=== PATIENT | female | born 1985 | race Caucasian/White ===

== ENCOUNTER 2016-05-30 12:02 | Outpatient (CLI) | payer MEDICAID, OTHER ==
[2016-05-30 13:46] VITALS: BP 110/67
--- NOTE | 2016-05-30 13:56 | Ultrasound Report ---
BIOPHYSICAL PROFILE: Technique: Transabdominal ultrasound with Doppler interrogation. 2 - breathing movements 2 - movements 2 - posture and tone 2 - Qualitative amniotic fluid volume 8 - TOTAL SCORE OF POSSIBLE 8 Heart Rate (bpm) 135
--- NOTE | 2016-05-30 13:57 | Ultrasound Report ---
OB LIMITED Technique: Transabdominal ultrasound with Doppler interrogation. Gestation: Single Position: Cephalic Amniotic Fluid: Normal EULOGIO = 15.3 cm Heart Rate: 135 bpm.
== END 2016-05-30 15:00 | disposition home or self-care (01) ==
LOC: TRG 12:02
PROVIDERS: ATTEND Specialist
DX: O77.9 Labor and delivery complicated by fetal stress, unspecified (principal); O47.9 False labor, unspecified; Z3A.00 Weeks of gestation of pregnancy not specified
CPT/HCPCS: 59025; 76815; 76819

== ENCOUNTER 2020-07-04 11:48 | Observation (INO) | payer OTHER ==
--- NOTE | 2020-07-04 12:36 | Emergency Department Report ---
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 she states she has only had to use one pad today. she states she is currently , LNMP 06/22/2020. she states she went to [facility] and they are concerned for left adnexal ectopic and she was sent to the ED. she denies any fever, n/v/d, dysuria, abnormal vaginal discharge. pmhx ectopic 5 years ago. no allergies to meds. /P:1/A:0 - Related Data Home Medications Medication Instructions Recorded Confirmed Last Taken Pnv No.95/Ferrous Fum/Folic AC 1 each PO DAILY 05/30/16 05/30/16 05/29/16 21:00 [Prenavite Tablet] 1 Previous Rx's Medication Instructions Recorded Last Taken Type Ferrous Sulfate [Feosol 325 MG tab] 325 mg PO BID #60 tablet 06/03/16 Unknown Rx Ibuprofen [Motrin 800 MG tab] 800 mg PO Q8HR PRN #30 tablet 06/03/16 Unknown Rx oxyCODONE /ACETAMINOPHEN [Percocet 1 tab PO Q6HR PRN #30 tablet 06/03/16 Unknown Rx 5/325] oxyCODONE /ACETAMINOPHEN [Percocet 1 tab PO Q6H PRN #30 tablet 07/04/20 Unknown Rx 5/325 mg] Allergies Allergy/AdvReac Type Severity Reaction Status Date / Time No Known Allergies Allergy Verified 05/30/16 12:40 ED Review of Systems ROS: Stated complaint: SENT BY DR OFFICE /EVALUATE Other details as noted in HPI Comment: All other systems reviewed and negative ED Past Medical Hx - Past Medical History Previous Medical History?: No Hx Hypertension: No Hx Diabetes: No Hx Deep Vein Thrombosis: No Hx Renal Disease: No Hx Sickle Cell Disease: No Hx Seizures: No Hx Asthma: No Hx HIV: No - Surgical History Past Surgical History?: No - Social History Smoking Status: Never Smoker - Medications Home Medications: Home Medications Medication Instructions Recorded Confirmed Last Taken Type Pnv No.95/Ferrous Fum/Folic AC 1 each PO DAILY 05/30/16 05/30/16 05/29/16 21:00 History [Prenavite Tablet] 1 Ferrous Sulfate [Feosol 325 MG tab] 325 mg PO BID #60 tablet 06/03/16 Unknown Rx Ibuprofen [Motrin 800 MG tab] 800 mg PO Q8HR PRN #30 tablet 06/03/16 Unknown Rx oxyCODONE /ACETAMINOPHEN [Percocet 1 tab PO Q6HR PRN #30 tablet 06/03/16 Unknown Rx 5/325] oxyCODONE /ACETAMINOPHEN [Percocet 1 tab PO Q6H PRN #30 tablet 07/04/20 Unknown Rx 5/325 mg] ED Physical Exam - General Limitations: No Limitations General appearance: alert, in no apparent distress - Head Head exam: Present: atraumatic, normocephalic - Eye Eye exam: Present: normal appearance - ENT ENT exam: Present: mucous membranes moist - Respiratory Respiratory exam: Present: normal lung sounds bilaterally. Absent: respiratory distress, wheezes, rales, rhonchi, stridor, chest wall tenderness, accessory muscle use, decreased breath sounds, prolonged expiratory - Cardiovascular Cardiovascular Exam: Present: regular rate, normal rhythm, normal heart sounds. Absent: systolic murmur, diastolic murmur, rubs, gallop - GI/Abdominal GI/Abdominal exam: Present: soft, tenderness (mild suprapubic), normal bowel sounds. Absent: distended, guarding, rebound, rigid - Neurological Exam Neurological exam: Present: alert, oriented X3 - Psychiatric Psychiatric exam: Present: normal affect, normal mood - Skin Skin exam: Present: warm, dry, intact ED Course Vital Signs 07/04/20 07/04/20 07/04/20 12:18 19:49 19:55 Temperature 97.4 F L 97.3 F L Pulse Rate 57 L 70 67 Respiratory 18 15 14 Rate Blood Pressure 111/49 104/57 108/56 O2 Sat by Pulse 100 100 100 Oximetry 07/04/20 07/04/20 07/04/20 20:00 20:15 20:30 Temperature 97.7 F Pulse Rate 70 76 72 Respiratory 14 14 14 Rate Blood Pressure 113/54 110/58 110/47 O2 Sat by Pulse 100 100 100 Oximetry - Consultations Consultation #1: 07/04/20 14:[address] Maik Carcamo, bracer states the clinic pt was sent from is affiliated [facility] and advised to call [facility] roadmaster bracer 07/04/20 15:[address] romero, bracer, regarding pt history and results, will evaluate pt in ED ED Medical Decision Making - Lab Data Result diagrams: 07/04/20 12:33 07/04/20 12:33 - Radiology Data Radiology results: report reviewed Ordering Physician: JEAN MILLAN Date of Service: 07/04/20 Procedure(s): US OB <= 14 weeks fetus Accession Number(s): [id number] cc: JEAN MILLAN ULTRASOUND OBSTETRIC INDICATION: First trimester with pelvic pain and bleeding. TECHNIQUE: Transabdominal. COMPARISON: None available. FINDINGS: A live left adnexal ectopic is noted with a crown-rump length of 0.4 cm, consistent with an age of 6 weeks, 1 day. The heart rate measures 116 bpm. No other significant left adnexal abnormality. A right ovarian cyst versus dominant follicle without suspicious features measures up to 1.5 cm. No other significant abnormality of the right ovary/adnexa. No intrauterine is identified. The uterus is otherwise unremarkable. No free fluid is seen. IMPRESSION: Live left adnexal ectopic as above. 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 she states she has only had to use one pad today. she states she is currently , LNMP 06/22/2020. she states she went to [facility] and they are concerned for left adnexal ectopic and she was sent to the ED. she denies any fever, n/v/d, dysuria, abnormal vaginal discharge. pmhx ectopic 5 years ago. no allergies to meds. /P:1/ A:0. vitals are normal. On exam patient has mild suprapubic abdominal tenderness palpation, no guarding, no rebound, no rigidity, [place] [address]. Patient is Rh positive. Otherwise labs are stable. OB ultrasound:Live left adnexal ectopic . spoke to Dr. romero, bracer, regarding pt history and results, will evaluate pt in ED. Dr. Romero, SHELL GRADER discussed with patient and they have decided to take patient to the OR. Critical care attestation.: If time is entered above; I have spent that time in minutes in the direct care of this critically ill patient, excluding procedure time. ED Disposition Clinical Impression: Vaginal bleeding Ectopic Qualifiers: Location of ectopic : ovarian Intrauterine status: without intrauterine Laterality: left Qualified Code(s): O00.202 - Left ovarian without intrauterine Abdominal pain Qualifiers: Abdominal location: lower abdomen, unspecified Qualified Code(s): R10.30 - Lower abdominal pain, unspecified Disposition: DC-09 OP ADMIT IP TO THIS HOSP Is pt being admited?: Yes Does the pt Need Aspirin: No Condition: Stable
[2020-07-04 12:43] LABS: Basophils % (Auto) 0.3 % (0.0-1.8); Eosinophils # (Auto) 0.1 K/mm3 (0.0-0.4); Eosinophils % (Auto) 0.9 % (0.0-4.3); Hemoglobin 12.1 gm/dl (10.1-14.3); Lymphocytes # (Auto) 1.2 K/mm3 (1.2-5.4); Lymphocytes % (Auto) 18.5 % (13.4-35.0); Mean Corpuscular HGB Conc 33 % (30-34); Mean Corpuscular Volume 88 fl (79-97); Monocytes # (Auto) 0.5 K/mm3 (0.0-0.8); Monocytes % (Auto) 7.5 % (0.0-7.3); Platelet Count 181 K/mm3 (140-440); Red Blood Count 4.23 M/mm3 (3.65-5.03); Red Cell Distribution Width 13.9 % (13.2-15.2)
[2020-07-04 13:08] LABS: Alanine Aminotransferase 18 units/L (7-56); Albumin 4.4 g/dL (3.9-5); Blood Urea Nitrogen 8 mg/dL (7-17); Calcium 9.1 mg/dL (8.4-10.2); Hemolysis Index 3
[2020-07-04 13:11] LABS: BUN/Creatinine Ratio 16
--- NOTE | 2020-07-04 13:28 | Ultrasound Report ---
ULTRASOUND OBSTETRIC INDICATION: First trimester with pelvic pain and bleeding. TECHNIQUE: Transabdominal. COMPARISON: None available. FINDINGS: A live left adnexal ectopic is noted with a crown-rump length of 0.4 cm, consistent with an age of 6 weeks, 1 day. The heart rate measures 116 bpm. No other significant left adnexal abnormalit y. A right ovarian cyst versus dominant follicle without suspicious features measures up to 1.5 cm. No o ther significant abnormality of the right ovary/adnexa. No intrauterine is identified. The uterus is otherwise unremarkable. No free fluid is seen. IMPRESSION: Live left adnexal ectopic as above. Signer Name: Bj Lopez MD Signed: 07/04/2020 1:23 PM Workstation Name: [id number]
[2020-07-04] MEDS ORDERED: LACTATED RINGERS 1,000 ML IV SCH ×2 (16:15→19:45)
--- NOTE | 2020-07-04 16:18 | History and Physical Report ---
History of Present Illness Date of examination: 07/04/20 Chief complaint: Left ectopic , hx right salpingectomy from previous ectopic . History of present illness: 35 yo A1 c/b hx prior c/s x 1, hx right ectopic with 10/2014 with reported R salpingectomy in 2014 presenting from [facility] clinic if concern for ectopic , found to have left ectopic with cardiac motion. Patient reports having vaginal bleeding that she though was her normal menses Jun 22 and has had intermittent lower abdominal pain since Friday07/01/20. Dx with abnormal today. Patient with hx of OCPs prior to first and hx of IUD after the of her only child in 2016 at [facility]. Patient otherwise medically uncomplicated and well. Denies hx of STDs or intraabdominal infections. Past History Past Medical History: no pertinent history Past Surgical History: section (x1), other (R salpingectomy (R ectopic 10/2014)) Family/Genetic History: diabetes (mother) Social history: no significant social history - Obstetrical History : 3 Para: 1 Hx # Term Pregnancies: 1 Induced : 1 Number of Living Children: 1 Medications and Allergies Allergies Allergy/AdvReac Type Severity Reaction Status Date / Time No Known Allergies Allergy Verified 05/30/16 12:40 Home Medications Medication Instructions Recorded Confirmed Last Taken Type Pnv No.95/Ferrous Fum/Folic AC 1 each PO DAILY 05/30/16 05/30/16 05/29/16 21:00 History [Prenavite Tablet] 1 Ferrous Sulfate [Feosol 325 MG tab] 325 mg PO BID #60 tablet 06/03/16 Unknown Rx Ibuprofen [Motrin 800 MG tab] 800 mg PO Q8HR PRN #30 tablet 06/03/16 Unknown Rx oxyCODONE /ACETAMINOPHEN [Percocet 1 tab PO Q6HR PRN #30 tablet 06/03/16 Unknown Rx 5/325] Review of Systems All systems: negative (expect HPI) - Vital Signs Vital signs: Vital Signs Temp Pulse Resp BP Pulse Ox 97.4 F L 57 L 18 111/49 100 07/04/20 12:18 07/04/20 12:18 07/04/20 12:18 07/04/20 12:18 07/04/20 12:18 Temp Pulse Resp BP Pulse Ox 97.4 F L 57 L 18 111/49 100 07/04/20 12:18 07/04/20 12:18 07/04/20 12:18 07/04/20 12:18 07/04/20 12:18 - Physical Exam Cardiovascular: Regular rate Lungs: Positive: Clear to auscultation, Normal air movement Abdomen: Positive: normal appearance, normal bowel sounds Results Result Diagrams: 07/04/20 12:33 07/04/20 12:33 Abnormal lab results 07/04/20 07/04/20 07/04/20 Range/Units 12:33 12:33 12:33 Wagoner % (Auto) 7.5 H (0.0-7.3) % Seg Neutrophils % 72.8 H (40.0-70.0) % Sodium 135 L (137-145) mmol/L Creatinine 0.5 L (0.6-1.2) mg/dL HCG, Quant 94602 H (0-4) mIU/mL All other labs normal. Ultrasound: report reviewed (Left sided ectopic , + CM, CRL 0.4 cm c/w 6w1d, Right ovarian cyst vs dominant follicle 1.5 cm, no IUP visualized, uterus otherwise benign, no free fluid) Assessment and Plan - Patient Problems (1) Ectopic Current Visit: Yes Status: Acute Qualifiers: Location of ectopic : ovarian Intrauterine status: without intrauterine Laterality: left Qualified Code(s): O00.202 - Left ovarian without intrauterine Plan to address problem: New left sided ectopic with cardiac motion with hx of previous right salpingectomy 2/2 right ectopic in 2014 --Discussed at length the possibility of losing 2nd fallopian tube given size of current left sided ectopic . Completed entire assessment with [employer]bay reseller. Offered to speak with patient's family members regarding this infomation and patient declines. --To OR for left sided salpingostomy, possible left sided salpingectomy, laparoscopic vs open, any other indicated procedures --Consented in the chart --Extensive discussion completed with particular regards of how this related to future possibilities, added the following to the consent under risks "risk of infertility naturally without fertility procedures secondary to loss of 2nd fallopian tube"
[2020-07-04] MEDS ORDERED: HYDROmorphone 1 MG/1 ML INJ ONE (16:26)
[2020-07-04] MEDS ORDERED: MIDAZOLAM 2 MG/2 ML INJ ONE (16:26)
[2020-07-04] MEDS ORDERED: propofoL 200 MG/20 ML VIAL IV ONE (16:27)
[2020-07-04] MEDS ORDERED: ROCURONIUM 50 MG/5 ML INJ IV ONE (16:29)
[2020-07-04] MEDS ORDERED: LIDOCAINE MPF (2%) 20 MG/1 ML VIAL 5 ML ONE (16:31)
--- NOTE | 2020-07-04 16:36 | Anesthesia Consultation ---
Anesthesia Consult and Med Hx Date of service: 07/04/20 - Airway Anesthetic Teeth Evaluation: Good ROM Head & Neck: Adequate Mental/Hyoid Distance: Adequate Mallampati Class: Class II Intubation Access Assessment: Good - Pulmonary Exam CTA: Yes - Cardiac Exam Cardiac Exam: RRR - Pre-Operative Health Status ASA Pre-Surgery Classification: ASA1, Emergency Proposed Anesthetic Plan: General - Pulmonary Hx Asthma: No Hx Pneumonia: No - Cardiovascular System Hx Hypertension: No - Central Nervous System Hx Seizures: No Hx Psychiatric Problems: No - Endocrine Hx Renal Disease: No Hx End Stage Renal Disease: No Hx Hypothyroidism: No Hx Hyperthyroidism: No - Hematic Hx Anemia: No Hx Sickle Cell Disease: No - Other Systems Hx Alcohol Use: No
--- NOTE | 2020-07-04 16:37 | Anesthesia Day of Surgery ---
Anesthesia Day of Surgery - Day of Surgery Patient Examined: Yes Patient H&P Reviewed: Yes Patient is NPO: Yes
[2020-07-04] MEDS ORDERED: BUPIVACAINE/PF (0.5%) 5 MG/1 ML 30 ML VIAL INFILTRATI ONE ×2 (16:44→18:40)
[2020-07-04] MEDS ORDERED: ONDANSETRON 4 MG/2 ML INJ IV PRN ×2 (16:50→19:39)
[2020-07-04] MEDS ORDERED: ceFAZolin/Water 2 GM/20 ML 2 GM/20 ML SYRINGE IV NR (17:00)
[2020-07-04] MEDS ORDERED: ePHEDrine SULFATE 50 MG/1 ML INJ ONE (17:44)
[2020-07-04] MEDS ORDERED: SODIUM CHLORIDE 0.9% IRRIG SOLN 2000 ML IR ONE (18:39)
[2020-07-04] MEDS ORDERED: NEOSTIGMINE 10MG/10 ML INJ MDV ONE (19:22)
[2020-07-04] MEDS ORDERED: KETOROLAC 30 MG/1 ML INJ ONE (19:23)
[2020-07-04] MEDS ORDERED: GLYCOPYRROLATE 0.4 MG/2 ML INJ ONE (19:23)
[2020-07-04] MEDS ORDERED: dexAMETHasone 20 MG/5 ML VIAL ONE (19:30)
[2020-07-04] MEDS ORDERED: ONDANSETRON 4 MG ODT TAB PO PRN (19:39)
[2020-07-04] MEDS ORDERED: NALOXONE 0.4 MG/1 ML INJ IV PRN (19:39)
[2020-07-04] MEDS ORDERED: IBUPROFEN 800 MG TAB PO PRN (19:39)
[2020-07-04] MEDS ORDERED: MORPHINE 4 MG/1 ML INJ IV PRN (19:39)
[2020-07-04] MEDS ORDERED: MORPHINE 2 MG/1 ML INJ IV PRN (19:39)
[2020-07-04] MEDS ORDERED: METOCLOPRAMIDE 10 MG/2 ML INJ IV PRN (19:39)
--- NOTE | 2020-07-04 19:51 | Procedure Note ---
Date of procedure: 07/04/20 Pre-op diagnosis: left ectopic Post-op diagnosis: same Procedure: Preoperative diagnosis: left ectopic with hemoperitoneum Postoperative diagnosis: Same Operation performed: 1. Laparoscopic left distal salpingectomy for left ectopic 2. Lysis of omental adhesions Surgeon: Baldemar Carbajal Anesthesia: General endotracheal anesthesia Estimated blood loss 400 cc IVF 850 cc UOP 200 cc Pathology Specimens: left fallopian tube Complications none Disposition and condition: To the PACU in stable condition and then admitted for observation Findings: 1. Normal uterus 2. Absent right fallopian tube 3. Normal bilateral ovaries 4. Distal left fallopian tube 5. Normal-appearing liver with what appears to be Rob-Terry Quang 6. Normal gallbladder 7. Omental adhesions to the anterior abdominal Statement of medical necessity: 35 yo c/b hx prior c/s x 1, hx right ectopic 10/2014 with reported R salpingectomy in 2014 presenting from [facility] clinic if concern for ectopic , found to have left ectopic with cardiac motion. After discussion of medical and surgical options, patient decided to proceed with surgical management. Description of operation: After obtaining informed consent, the patient was taken to the operating room where satisfactory general endotracheal anesthesia was established. The patient was placed in modified supine position using Tod stirrups ensuring proper positioning and cushioning to avoid nerve injury. An exam under anesthesia was performed with the findings noted above. She was prepped and draped in the usual sterile fashion. Straight catheterization of the bladder was performed. A SmartExposeeer uterine manipulator was placed in order to aid in uterine manipulation. Attention was directed to the abdomen. A 5 mm incision was placed supraumbilically. With the patient horizontal, the camera and 5 mm trocar were introduced into the abdominal cavity while tenting up the abdominal wall with towel clips in order to gain entry into the abdominal cavity. Intraperitoneal placement was confirmed with initial pressure of 15 mmHg on insufflation. Pneumoperitoneum was obtained in the placed and the patient was placed in Trendelenburg position. A right lateral incision was made with a scalpel and a 5 mm trocar was placed under direct visualization. The blunt grasper was used in order to inspect the pelvis with the findings noted above. Given difficulty accessing the lower pelvis given omental adhesions, the LigaSure device and the monopolar scissors with energy were used in order to remove the omental adhesions from the anterior abdominal wall allowing for proper visualization of the lower pelvis. With the lower pelvis visualized, the right fallopian tube was noted to be absent as previously expected and the left fallopian tube was noted to have what appeared to be a distal adnexal mass consistent with ectopic . Next, a left lateral incision was made with a scalpel and a 10 mm trocar was placed under direct visualization. At this time the monopolar scissors with energy was used in order to attempt a salpingostomy procedure. The fallopian tube with the ectopic was sharply entered and portions of the ectopic was removed in multiple segments from the 10 mm trocar port. At that time, bleeding was noted at the left fallopian tube and the decision was made to proceed with salpingectomy. T he left fallopian tube was grasped with a blunt grasper and LigaSure device was used in order to transect the distal left fallopian tube. The specimen was brought out through the 10 mm trocar under direct visualization. The suction automation tech was used in order to evacuate the hemoperitoneum and the abdomen was expected was inspected with hemostasis noted. Leonidas was applied to the transected omentum and the operative field surrounding the transected left fallopian tube with the pressure reduced in order to assess for hemostasis. All instruments were removed. The 10 mm trocar was removed. The Jae Gann retraction device was used in order to close the fascia at the 10 mm trocar site. The pneumoperitoneum was reduced and the umbilical trocar and remaining right trocar was removed under direct visitation while with withdrawing the laparoscope. The patient was returned to horizontal dorsal supine position. The incisions were injected with half percent Marcaine plain. The skin i ncisions were closed with 4-0 monocryl in a subcuticular fashion and dressed with Dermabond. The Kronner manipulator was removed from vagina. The patient tolerated the procedure well was extubated without difficulty and transferred recovery room in good condition. Sponge, needle instrument counts were correct x2. There is no surgical or anesthetic complications. Anesthesia: GETA Surgeon: BALDEMAR CARBAJAL JR Estimated blood loss: other (400cc) IV fluids: 850 Urine output: 200 Pathology: list (left fallopian tube) Specimen disposition: to lab Condition: stable Disposition: floor
[2020-07-04] MEDS: HYDROmorphone 1 MG/1 ML INJ IV PRN ×2 (20:14→20:24)
[2020-07-04] MEDS: KETOROLAC 30 MG/1 ML INJ IV SCH (20:54)
--- NOTE | 2020-07-04 21:37 | Event Note ---
Date: 07/04/20 Discussed with patient with unit control worker about the result of the surgery given unable to only do salpingostomy 2/2 tubal bleeding after removal of ectopic . Given this possibility previously discussed with patient prior to surgical management, patient expressed understanding. Expressed to the patient that [id number] was found that could be possible etiology for recurrent ectopic , 2 out of 3 total pregnancies. Patient denies hx of pelvic infection. Otherwise benign pelvis other than findings in operative report. N ow without either tube and patient understands the need for fertility treatment if she wishes to conceive again.
[2020-07-05] MEDS: KETOROLAC 30 MG/1 ML INJ IV SCH ×2 (03:29→09:11)
[2020-07-05 06:37] LABS: Basophils % (Auto) 0.1 % (0.0-1.8); Hemoglobin 10.1 gm/dl (10.1-14.3); Lymphocytes # (Auto) 0.7 K/mm3 (1.2-5.4); Lymphocytes % (Auto) 9.2 % (13.4-35.0); Mean Corpuscular HGB Conc 34 % (30-34); Mean Corpuscular Volume 87 fl (79-97); Monocytes # (Auto) 0.4 K/mm3 (0.0-0.8); Monocytes % (Auto) 5.7 % (0.0-7.3); Platelet Count 150 K/mm3 (140-440); Red Blood Count 3.44 M/mm3 (3.65-5.03); Red Cell Distribution Width 13.6 % (13.2-15.2)
[2020-07-05 06:50] LABS: Alanine Aminotransferase 13 units/L (7-56); Albumin 3.5 g/dL (3.9-5); Blood Urea Nitrogen 7 mg/dL (7-17); Calcium 8.4 mg/dL (8.4-10.2); Hemolysis Index 0
[2020-07-05 06:52] LABS: BUN/Creatinine Ratio 14
[2020-07-05] MEDS: oxyCODONE /ACETAMINOPHEN 5-325MG TAB PO PRN ×2 (08:02→13:55)
[2020-07-05 09:41] LABS: Bilirubin,Urine NEG (Negative); Blood,Urine MOD (Negative); Color,Urine Straw (Yellow); Protein,Urine <15 mg/dL mg/dL (Negative); Urobilinogen,Urine < 2.0 mg/dL (<2.0)
--- NOTE | 2020-07-05 15:22 | Progress Note ---
Assessment and Plan - Patient Problems (1) Ectopic Current Visit: Yes Status: Acute Qualifiers: Location of ectopic : ovarian Intrauterine status: without intrauterine Laterality: left Qualified Code(s): O00.202 - Left ovarian without intrauterine Plan to address problem: stable POD 1 s/p lap salpingectomy. D/C home RTO 2 weeks Subjective - Subjective Date of service: 07/05/20 (POD 1) Patient reports: appetite normal, voiding normally, pain well controlled, ambulating normally Objective - Vital Signs Latest vital signs: Vital Signs Temp Pulse Resp BP BP Pulse Ox 07/05/20 11:45 98.1 F 64 18 92/61 100 07/05/20 10:06 98.0 F 58 L 18 94/41 100 07/05/20 07:56 98.0 F 62 18 83/42 98 07/05/20 04:54 98.0 F 64 18 102/51 97 07/05/20 03:15 98.1 F 54 L 18 92/48 97 07/05/20 01:04 98.0 F 65 18 87/28 99 07/04/20 20:40 98.1 F 72 18 102/55 100 07/04/20 20:30 97.7 F 72 14 110/47 100 07/04/20 20:15 76 14 110/58 100 07/04/20 20:00 70 14 113/54 100 07/04/20 19:55 67 14 108/56 100 07/04/20 19:49 97.3 F L 70 15 104/57 100 Intake and Output 07/04/20 07/05/20 07/05/20 23:59 07:59 15:59 Intake Total 460 300 Output Total 900 250 Balance 460 -600 -250 Intake: IV 460 Right Antecubital 10 Intake, Free Water 300 Output: Urine 900 250 Void 900 250 Other: Total, Output Amount 900 250 Voiding Method Toilet # Voids Void 1 Weight 65.5 kg - Exam Abdomen: Present: normal appearance (appropriately tender), soft Incision: Present: normal, dry, intact - Labs Labs: Abnormal lab results 07/05/20 07/05/20 Range/Units 05:53 05:53 RBC 3.44 L (3.65-5.03) M/mm3 Hct 30.0 L D (30.3-42.9) % Lymph % (Auto) 9.2 L (13.4-35.0) % Lymph # (Auto) 0.7 L (1.2-5.4) K/mm3 Seg Neutrophils % 85.0 H (40.0-70.0) % Chloride 107.2 H (98-107) mmol/L Creatinine 0.5 L (0.6-1.2) mg/dL Glucose 115 H (65-100) mg/dL Total Protein 5.4 L D (6.3-8.2) g/dL Albumin 3.5 L (3.9-5) g/dL
--- NOTE | 2020-07-05 15:24 | Short Stay Summary ---
Short Stay Documentation Date of service: 07/04/20 Narrative H&P: Pt is s/p lap salpingectomy for ectopic preg on 07/04/20. See H&P and OP report for details. PT sent home on POD 1. Hgn =10 post op. RTO 2 weeks. - History H&P: dictated Social history: no significant social history - Allergies and Medications Current Medications: Allergies No Known Allergies Allergy (Verified 05/30/16 12:40) Home Medications Medication Instructions Recorded Confirmed Last Taken Type Pnv No.95/Ferrous Fum/Folic AC 1 each PO DAILY 05/30/16 05/30/16 05/29/16 21:00 History [Prenavite Tablet] 1 Ferrous Sulfate [Feosol 325 MG tab] 325 mg PO BID #60 tablet 06/03/16 Unknown Rx Ibuprofen [Motrin 800 MG tab] 800 mg PO Q8HR PRN #30 tablet 06/03/16 Unknown Rx oxyCODONE /ACETAMINOPHEN [Percocet 1 tab PO Q6HR PRN #30 tablet 06/03/16 Unknown Rx 5/325] oxyCODONE /ACETAMINOPHEN [Percocet 1 tab PO Q6H PRN #30 tablet 07/04/20 Unknown Rx 5/325 mg] Ibuprofen [Motrin 600 MG tab] 600 mg PO Q8H PRN #30 tablet 07/05/20 Unknown Rx Active Medications Hydromorphone HCl (Hydromorphone 1 Mg/1 Ml Inj) 0.5 mg IV Q10MIN PRN PRN Reason: Pain , Severe (7-10) Stop: 07/05/20 16:49 Last Admin: 07/04/20 20:24 Dose: 0.5 mg Documented by: Lactated Ringer's (Lactated Ringers) 1,000 mls @ 125 mls/hr IV DIRECT RAIMUNDO Last Admin: 07/05/20 04:38 Dose: 125 mls/hr Documented by: Lactated Ringer's (Lactated Ringers) 1,000 mls @ 125 mls/hr IV DIRECT RAIMUNDO Ibuprofen (Ibuprofen 800 Mg Tab) 800 mg PO Q8H PRN PRN Reason: Pain, Mild (1-3) Metoclopramide HCl (Metoclopramide 10 Mg/2 Ml Inj) 10 mg IV Q6H PRN PRN Reason: Nausea And Vomiting Morphine Sulfate (Morphine 2 Mg/1 Ml Inj) 2 mg IV Q4H PRN PRN Reason: Pain, Moderate (4-6) Morphine Sulfate (Morphine 4 Mg/1 Ml Inj) 4 mg IV Q4H PRN PRN Reason: Pain , Severe (7-10) Last Admin: 07/04/20 23:41 Dose: 4 mg Documented by: Naloxone HCl (Naloxone 0.4 Mg/1 Ml Inj) 0.1 mg IV Q2MIN PRN PRN Reason: Res Rate </= 8 or 02 SAT < 92% Ondansetron HCl (Ondansetron 4 Mg/2 Ml Inj) 4 mg IV ONCE PRN PRN Reason: Nausea And Vomiting Ondansetron HCl (Ondansetron 4 Mg/2 Ml Inj) 4 mg IV Q8H PRN PRN Reason: N/V unrelieved by Regalida Ondansetron HCl (Ondansetron 4 Mg Odt Tab) 4 mg PO Q8H PRN PRN Reason: Nausea And Vomiting Oxycodone/Acetaminophen (Oxycodone /Acetaminophen 5-325mg Tab) 1 tab PO Q6H PRN PRN Reason: Pain, Moderate (4-6) Last Admin: 07/05/20 13:55 Dose: 1 tab Documented by: - Disposition Condition at discharge: Stable Disposition: [id number] TO HOME OR SELFCARE - Discharge Diagnoses (1) Ectopic Status: Acute Qualifiers: Location of ectopic : ovarian Intrauterine status: without intrauterine Laterality: left Qualified Code(s): O00.202 - Left ovarian without intrauterine Short Stay Discharge Plan Follow up with: BALDEMAR CARBAJAL JR, MD [Staff Physician] - 07/18/20 (postop follow up at [facility]) Prescriptions: Ibuprofen [Motrin 600 MG tab] 600 mg PO Q8H PRN #30 tablet PRN Reason: Pain oxyCODONE /ACETAMINOPHEN [Percocet 5/325 mg] 1 tab PO Q6H PRN #30 tablet PRN Reason: Pain, Moderate (4-6)
--- NOTE | 2020-07-05 15:28 | Post Anesthesia Evaluation ---
- Post Anesthesia Evaluation Patient Participated: Yes Airway Patent: Yes Stable Respiratory Function: Yes Nausea/Vomiting: No Temp > 96.8F: Yes Pain Manageable: Yes Adequeate Hydration: Yes Anesthesia Complications: No Block Receding Appropriately: Not Applicable Patient on Ventilator: No
[2020-07-05 16:18] VITALS: BP 107/48
== END 2020-07-05 17:21 | disposition home or self-care (01) ==
LOC: ED 11:48 → OB 19:40
PROVIDERS: ADMIT Obstetrics & Gynecology; ATTEND Obstetrics & Gynecology
DX: O00.202 Left ovarian pregnancy without intrauterine pregnancy (principal); Z90.79 Acquired absence of other genital organ(s); Z98.891 History of uterine scar from previous surgery; Z3A.01 Less than 8 weeks gestation of pregnancy
CPT/HCPCS: 36415; 59151; 76801; 80053; 81001; 84702; 85025; 86850; 86900; 86901; 88305; 96374; 96375; 96376; 99284; A4217; G0378; J1100; J1170; J1885; J2250; J2270; J2704; J2710; J7120